=== PATIENT | male | born 1960 | race Caucasian/White ===

== ENCOUNTER 2017-10-21 08:35 | Outpatient (CLI) | payer MEDICARE, OTHER ==
[~2017-10-21] VITALS: Ht 180.3 cm; Wt 103.4 kg
[2017-10-21 08:53] VITALS: BP 182/92; PULSE 61; TEMP 97.6
[2017-10-21] MEDS ORDERED: PROAIR HFA0.09 MG/AC IH (09:12)
[2017-10-21] MEDS ORDERED: ASPIRIN 81M81 MG/TA2 PO (09:13)
[2017-10-21] MEDS ORDERED: ALBUTEROL0.83 MG/ML IH (09:13)
[2017-10-21] MEDS ORDERED: TENORMIN 2525 MG/TAB PO (09:14)
[2017-10-21] MEDS ORDERED: ZEBETA 5MG5 MG PO (09:14)
[2017-10-21] MEDS ORDERED: 00186-0370-20 IH (09:14)
[2017-10-21] MEDS ORDERED: CYANOCOBAL1000 MCG/M IM (09:15)
[2017-10-21] MEDS ORDERED: B-121000 MCG PO (09:20)
[2017-10-21] MEDS ORDERED: VALIUM 2MG T2 MG/TAB PO (09:23)
[2017-10-21] MEDS ORDERED: CARDIZEM CD 18180 MG PO (09:24)
[2017-10-21] MEDS ORDERED: NEURONTIN300 MG/CAP PO (09:25)
[2017-10-21] MEDS ORDERED: CYMBALTA 60MG60 MG PO (09:25)
[2017-10-21] MEDS ORDERED: HCTZ 25MG TAB25 MG PO (09:25)
[2017-10-21] MEDS ORDERED: ZESTRIL 20MG TA20 MG PO (09:26)
[2017-10-21] MEDS ORDERED: COZAAR100 MG PO (09:26)
[2017-10-21] MEDS ORDERED: PROTONIX 40MG T40 MG PO (09:27)
[2017-10-21] MEDS ORDERED: NITROSTAT0.4 MG/TAB SL (09:27)
[2017-10-21] MEDS ORDERED: ZOCOR 40MG40 MG PO (09:27)
== END 2017-10-21 11:58 | disposition home or self-care (01) ==
LOC: COL.CAR 08:35
DX: R55 Syncope and collapse (principal); R07.89 Other chest pain; J44.9 Chronic obstructive pulmonary disease, unspecified; E78.5 Hyperlipidemia, unspecified; I10 Essential (primary) hypertension; N28.9 Disorder of kidney and ureter, unspecified; J32.9 Chronic sinusitis, unspecified; F17.210 Nicotine dependence, cigarettes, uncomplicated; R53.83 Other fatigue; R00.1 Bradycardia, unspecified; Z91.040 Latex allergy status; Z79.82 Long term (current) use of aspirin; Z82.49 Family history of ischemic heart disease and other diseases of the circulatory system

== ENCOUNTER → 2020-05-22 | Outpatient (CLI) | payer OTHER ==
[~2020-05-22] MED LIST: 00186-0370-20 IH; ALBUTEROL0.83 MG/ML IH; ASPIRIN 81M81 MG/TA2 PO; B-121000 MCG PO; CARDIZEM CD 18180 MG PO; COZAAR100 MG PO; CYANOCOBAL1000 MCG/M IM; CYMBALTA 60MG60 MG PO; HCTZ 25MG TAB25 MG PO; NEURONTIN300 MG/CAP PO; NITROSTAT0.4 MG/TAB SL; PROAIR HFA0.09 MG/AC IH; PROTONIX 40MG T40 MG PO; TENORMIN 2525 MG/TAB PO; VALIUM 2MG T2 MG/TAB PO; ZEBETA 5MG5 MG PO; ZESTRIL 20MG TA20 MG PO; ZOCOR 40MG40 MG PO
== END ==
LOC: ZCOL.LAB 16:44
DX: H92.12 Otorrhea, left ear (principal)

== ENCOUNTER → 2020-11-13 | Outpatient (CLI) | payer MEDICARE | LOC: ZCOL.LAB 17:22 | DX: H92.13 Otorrhea, bilateral (principal) ==